=== PATIENT | female | born 2000 | race Caucasian/White ===

== ENCOUNTER 2022-02-06 09:37 | Day surgery (SDC) | payer OTHER, SELFPAY ==
[2022-02-06] VITALS (8 sets, daily range): BP systolic 93–122; BP diastolic 48–80; PULSE 55–82; RESP 16–18; TEMP 36.3–36.8; O2SAT 96–100; BMI 27.6
[2022-02-06 10:29] LABS: Internal QC Validated? YES +Cl - CLEAR BKGD
[2022-02-06 10:31] LABS: Hematocrit 39.8 % (37-47); Hemoglobin 13.9 g/dL (12.0-15.0); Mean Corp Hgb Conc 34.9 g/dL (32-36); Mean Corpuscular Hgb 30.5 pg (27.0-32.0); Mean Corpuscular Volume 87.5 fL (81-99); Mean Platelet Vol. 9.4 fl (6.2-12.0); Platelet Count 381 K/mm3 (150-450); RBC Distribution Width CV 12.7 % (11.6-14.6); RBC Distribution Width SD 40.5 fl (35.1-43.9); Red Blood Count 4.55 M/mm3 (4.2-5.4)
[2022-02-06 10:33] LABS: Pregnancy, Urine Negative Negative
[2022-02-06] MEDS: Lactated Ringers 1,000 ML 15 ML IV (10:35)
--- NOTE | 2022-02-06 11:25 | FALS_PTH ---
PATIENT: ELIER NARVAEZ [place] [facility] [id number] AGE/SX: 21/ ROOM: RE02/06/[address]: Dr. Paradise Peres DO : 2000 BED: DIS: 02/06/2022 SPEC #: [id number] RECD: 02/06/22 15:01 STATUS: L[place]ELL [place] #: [id number] REFUGIO: 02/06/22 11:[address]: Paradise Peres DEPT: SURGICAL PATHOLOGY RECD BY: Maude Brunner ENTERED: 02/07/22 09:55 SP TYPE: FALL TUBES OTHR DR: Breezy Best, THIRD HELPER-C Tissues: Fallopian tube Procedures: Surgery Specimen Level II HEADER OPERATION: Laparoscopic salpingectomy, IUD removal PRE-OP DIAGNOSIS: Sterilization, removal of IUD TISSUE SUBMITTED: Bilateral fallopian tubes MICROSCOPIC DIAGNOSIS Bilateral fallopian tubes, salpingectomy: Bilateral fallopian tubes, no pathologic diagnosis. SJ:sandy 02/11/2022 MICROSCOPIC DESCRIPTION Slides are reviewed. GROSS DESCRIPTION Received in fixative is one container labeled with the patient's name and designated bilateral fallopian tubes. The specimen consists of bilateral fallopian tubes including fimbrial ends measuring 5.5 cm in length and 0.5 cm in diameter and 6 cm in length and 0.5 cm in diameter. The fallopian tubes are not identified as right or left. Sections reveal unremarkable cut surfaces. Geochemistry Teacher sections are submitted in two cassettes with each cassette containing one fallopian tube. / Shannon 02/07/2022 TC:4 CPT: 11304 x2
--- NOTE | 2022-02-06 14:00 | DCINST_ITS ---
Discharge Instructions Diet Discharge Diet: No restrictions Activity Discharge Activity: May Drive (Once you are no longer taking Percocet, more than 24 hours out from the surgery, and you feel strong enough to slam on a brake or turn a steering wheel sharply) and May Shower (More than 24 hours out from surgery) May resume sexual activity in: 1 week (No intercourse, tampons, hot tubs, baths or pools for 1 week) Ice area for (Minutes): 15 Weight Bearing Status: Weight bearing as tolerated Lifting Restrictions: Nothing heavier than 10-15 lbs for 1st week Dressing / Incision Call your doctor if your incision/area has: Continuous Slow Oozing, Sudden Increased Bleeding, Increased Pain/ Swelling, Increased Redness, Foul Smelling Discharge and Swelling at the incision site Call your doctor if you observe: Fever of 101 or Higher, Coldness, Increased Pain, Numbness or Tingling, Change in Color, Inability to urinate, Inability to have a bowel movement, Using more than 1 pad per hour, Shortness of breath, Dizziness, Fainting spells, Swelling in the ankles, Chest pain, Increased palpitations (irregular heartbeat), Calf discomfort and Uncontrolled pain Suture Line Care: Avoid Pulling/Pushing and Avoid Pinching/Bending Remove Dressing in: leave in place till F/U Cleanse incision/area with: Soap & Water Follow Up Care Please Follow Up With: Paradise Peres DO When: 1 week post op exam Test Results: Test results from this visit will be discussed in further detail at your follow- up appointment, if applicable. Discharge Plan Admission Primary Reason for Your Visit: surgery Attending Provider: Paradise Peres Primary Care Provider: Breezy Best NP Discharge Orders/Prescriptions Prescriptions: New oxycodone-acetaminophen [Percocet] 5-325 mg tablet 1 tab PO Q6H PRN (Reason: pain) 7 Days Qty: 15 0RF ibuprofen 600 mg tablet 600 mg PO Q6H PRN (Reason: pain) Qty: 30 0RF Discontinued Mirena 20 mcg/24 hours (8 yrs) 52 mg Intrauterine Device 20 mcg INTRAUTERINE UD Referrals / Follow Up: Breezy Best GLOBAL CREATIVE CHAIRMAN, GLOBAL CREATIVE CHAIRMAN-C [Primary Care Provider] - Disposition Disposition (needs filled in before D/C Order can be placed): Home, Self Care
--- NOTE | 2022-02-06 14:02 | PCM.OPRPT ---
Problems Associated Problem List Diagnoses (1) Request for sterilization: Report of Operation Date of Procedure: 02/06/22 Pre-Operative Diagnosis: Request for sterilization Desires IUD removal Post-Operative Diagnosis: As above Surgery/Procedure Performed:: Laparoscopic bilateral salpingectomy IUD removal Description of Surgical Findings:: Normal appearing pelvis. Normal uterus and bilateral adnexa Surgeon: Paradise Peres locksmith apprentice: None Type of Anesthesia: General Special Medications: None Specimen's removed: Bilateral fallopian tubes Drains: None Estimated Blood Loss (mL): < 50 cc Fluids Replaced: 1000 mL Description of Procedure: The patient was taken to the operating room where general anesthesia was induced. She was prepped and draped in the dorsal lithotomy position using yellowfin stirrups. From below weighted speculum was placed to expose the cervix. The anterior lip of the cervix was grasped with a single-tooth tenaculum. The IUD strings were visualized and grasped with a ring forcep. Using gentle traction the IUD was moved removed easily and intact. An acorn manipulator was placed for uterine manipulation. The weighted speculum was removed. Gloves were changed and attention was turned to the abdominal portion of the procedure. Local was infiltrated at all port sites. Infraumbilically a 5 mm incision was made to accommodate a 5 mm port. This infraumbilical port was placed using direct visualization with the laparoscope. Once confirmed intraperitoneal, CO2 insufflation was initiated. A right lateral 5 mm port was placed. A left lateral 5 mm port was placed. The right fallopian tube was followed out to the fimbriated end. Using the LigaSure device the mesosalpinx was serially clamped, cauterized, and transected until reaching level of the cornua. Once at the level of the cornua, the fallopian tube was transected and removed. The same was performed on the left side. The left fallopian tube was followed out to the fimbriated end and elevated the pelvis. The left mesosalpinx was serially clamped, cauterized, transected using the LigaSure device. Once at the level of the cornua the fallopian tube was transected and removed. Bilateral fallopian tubes were sent to pathology for review. Pelvis was normal-appearing. Hemostasis was noted. The abdomen was exsufflated and all ports were removed. The port sites were closed with Monocryl and glue. From below all instruments were removed from the vagina and vaginal sweep was performed. Instrument, sponge, sharps counts were correct. The patient was taken to recovery room in stable condition. Grafts/Implants Used: None Procedure Start Time: 13:34 Procedure Stop Time: 14:10 Complications None Admit VTE Documentation VTE Present on Admission: No VTE Mechan Device Prophylaxis: SCD's
== END 2022-02-06 16:21 | disposition home or self-care (01) ==
LOC: SDC 09:40 → AC 09:43
PROVIDERS: Anesthesiology; PCP Nurse Practitioner Family; Referring Provider Obstetrics & Gynecology; Visit Provider Obstetrics & Gynecology
PROC: (CPT 58661; principal; 2022-02-06 11:10)
DX: Z30.2 Encounter for sterilization (principal); Z30.432 Encounter for removal of intrauterine contraceptive device
CPT/HCPCS: 58661; 58301; 00840; 81025; 85027; 86850; 86900; 86901; 88302; J7120; J2405

== ENCOUNTER 2022-06-13 01:40 | Emergency (ER) | payer OTHER, SELFPAY ==
[2022-06-13 01:42] VITALS: BP 116/58; PULSE 85; RESP 16; TEMP 36.2; O2SAT 99; BMI 29.5
--- NOTE | 2022-06-13 02:05 | EKG12_ITS ---
Test Reason : CP Blood Pressure : / mmHG Vent. Rate : 067 BPM Atrial Rate : 067 BPM P-R Int : 190 ms QRS Dur : 094 ms QT Int : 400 ms P-R-T Axes : 062 080 049 degrees QTc Int : 422 ms Normal sinus rhythm Normal ECG Confirmed by ALONA FOREMAN, SOREN ([id number]), news copy editor DEANGELO ALEXANDER ([id number]) on 06/16/2022 12:39:31 PM Referred By: MINESH Confirmed By:JOSIAH SAGE MD
--- NOTE | 2022-06-13 02:30 | RAD_ITS ---
INDICATION: chest pain EXAMINATION/TECHNIQUE: X-RAY - XR Chest 2 Views COMPARISON: None. FINDINGS: LINES/DEVICES: None. LUNGS: No consolidation, edema or effusion. No pneumothorax. MEDIASTINUM AND CARDIOVASCULAR STRUCTURES: Cardiac silhouette not enlarged. Central airways and mediastinal contour are unremarkable. BONES AND SOFT TISSUES: Unremarkable. RAD/Chest PA and Lateral IMPRESSION: No radiographic evidence of acute cardiopulmonary disease. Electronically Signed: Bari Michel MD at 2:50 EST ,
[2022-06-13 02:37] LABS: Absolute Lymphocyte Count 2.35 X10^3/uL (0.83-4.51); Absolute Neutrophil Count 5.5 X10^3/uL (2.0-7.7); Basophil# 0.03 X10^3/uL; Basophil% 0.3 % (0-1); Eosinophil# 0.08 X10^3/uL; Eosinophils% 0.9 % (0-5); Hematocrit 37.6 % (37-47); Hemoglobin 12.3 g/dL (12.0-15.0); Lymphocyte # 2.35 X10^3/ul (0.83-4.51); Lymphocyte % 27.3 % (19-41); Mean Corp Hgb Conc 32.7 g/dL (32-36); Mean Corpuscular Hgb 29.2 pg (27.0-32.0); Mean Corpuscular Volume 89.3 fL (81-99); Mean Platelet Vol. 10.3 fl (6.2-12.0); Monocyte# 0.61 X10^3/uL; Monocyte% 7.1 % (0-10); NRBC Flagged by Analyzer 0 % (0-5); Neutrophil # 5.52 X10^3/uL (2.7-7.7); Neutrophil % 64.1 % (47-70); Platelet Count 341 K/mm3 (150-450); RBC Distribution Width CV 12.5 % (11.6-14.6); RBC Distribution Width SD 40.5 fl (35.1-43.9); Red Blood Count 4.21 M/mm3 (4.2-5.4); White Blood Count 8.6 K/mm3 (4.4-11.0)
[2022-06-13 02:58] LABS: Anion Gap 8 (5-15); BUN 13 mg/dL (7-18); BUN/Creat Ratio 16.2 RATIO (10-20); Calcium,Total 8.8 mg/dL (8.5-10.1); Chloride 107 mmol/L (98-107); EST Glomerular Filtration Rate 94 mL/min (>60); Est Glom Filt Rate - Afr Amer 114 mL/min (>60); Estimated Creatinine Clearance 107.27 ml/min; Glucose 116 mg/dL (74-106); Potassium 3.7 mmol/L (3.5-5.1); Sodium Level 138 mmol/L (136-145); Thyroid Stim Hormone (TSH) 7.91 uIU/mL (0.358-3.74); Troponin-I HS 4 pg/mL (3.0-54.0)
--- NOTE | 2022-06-13 03:20 | EDS_ITS ---
HPI History of Present Illness Chief Complaint: Chest Pain Narrative Narrative: Patient is a 21-year-old female who reports a previous remote history of anxiety after eating pot brownies. She states that today she was at work and had a overall noneventful day. She states she was closing up when suddenly she fell like her heart was racing and skipping beats and she had chest discomfort. She states that there has been no excessive stimulant use or illicit drug use. She states there is no family history of cardiac disease at a young age. She states that there is been no recent travel surgery or history of DVT/PE. She states that since his onset symptoms have been gradually improving but with concern this could be related to some the other than anxiety she presents for evaluation [facility] Medical History (Updated 06/13/22 @ 03:[address] Dale Sherman DO) Anxiety Depression Gastric reflux Kidney stones Migraine headache Home Medications NK 06/13/22 [History Last Taken Unknown] Allergy/AdvReac Type Severity Reaction Status Date / Time No Known Allergies Allergy Verified 02/04/22 08:03 Social History Smoking Status: Never smoker [facility] ED Constitutional Constitutional ED: Denies chills or fever(s) ENT ENT ED: Denies sore throat Cardiovascular Cardiovascular: Reports chest pain, palpitations and racing heartbeat Respiratory/Chest Respiratory/Chest: Denies cough or dyspnea Gastrointestinal Gastrointestinal: Denies abdominal pain, diarrhea, nausea or vomiting Genitourinary Genitourinary ED: Denies dysuria Musculoskeletal Musculoskeletal: Denies myalgias Integumentary Denies rash Neurologic Neurologic: Denies headache(s) Psychiatric Psychiatric: Denies anxiety Hematologic/Lymphatic Hematologic/Lymphatic: Denies easy bleeding or easy bruising EXAM Physical Exam Const Vital Signs: 06/13/22 01:42 06/13/22 01:42 06/13/22 03:23 Temperature 97.2 F L Temperature Source Temporal Pulse Rate 85 66 Respiratory Rate 16 17 Respiratory Effort Normal Non-Labored Blood Pressure 116/58 L Blood Pressure Mean 77 Pulse Ox 99 98 Oxygen Delivery Method Room Air Positive well nourished and well developed General Appearance ED: well developed Eyes PERRL and EOMs intact bilaterally Neck supple Neck Narrative: No obvious nodule or goiter noted along the thyroid Chest Wall palpation of chest normal Chest Narrative: No bony deformity or crepitance Resp normal respiratory effort and clear to auscultation bilaterally Cardio regular rate and regular rhythm Rate: other Other Details: Radial pulses are plus 2 out of 4 bilaterally are equal and symmetric GI normal to inspection, nondistended, normoactive bowel sounds, non-tender and non-distended Auscultation: normoactive bowel sounds Palpation: soft Extremity normal to inspection Extremity Narrative: No asymmetric edema no pitting edema negative Homans' sign bilaterally Neuro oriented x3 and CN's II-XII intact bilaterally Sensorium / Orientation: alert Psych mental status grossly normal Skin no rashes or lesions noted MDM MDM MDM Narrative Medical decision making narrative: Patient presented to the ER with stable vitals and spontaneously improving symptoms. She is low risk for cardiac disease. She also is PERC negative and therefore I feel no need for D-dimer. At this time with her report of chest d iscomfort but also that it began with palpitations and heart racing there was concern she was in a cardiac dysrhythmia so basic blood work with EKG and chest x-ray were obtained. Labs revealed no clinically significant findings. Chest x-ray revealed no acute lung pathology such as pneumonia pneumothorax or tumor as a cause of her symptoms. EKG and property assessment monitor revealed no acute dysrhythmia or signs of cardiac damage. On reevaluation patient is resting comfortably and reports resolution of symptoms. As labs revealed no clinically significant findings or signs of cardiac event I do not feel there is need for further work-up as she is low risk for acute coronary syndrome and is PERC negative for possible DVT/PE. Patient most likely had a breakthrough anxiety attack as a cause of her symptoms and as there is been spontaneous resolution of symptoms with out positive work-up she is otherwise safe for discharge Lab Data Attestation: I reviewed the patient's lab results. Labs: Laboratory Results - last 24 hr 06/13/22 06/13/22 02:17 02:17 WBC 8.6 RBC 4.21 Hgb 12.3 Hct 37.6 MCV 89.3 MCH 29.2 MCHC 32.7 RDW Std Deviation 40.5 RDW Coeff of Jimmy 12.5 Plt Count 341 MPV 10.3 Immature Gran % (Auto) 0.300 Neut % (Auto) 64.1 Lymph % (Auto) 27.3 [place] % (Auto) 7.1 Eos % (Auto) 0.9 Baso % (Auto) 0.3 Absolute Neuts (auto) 5.5 Absolute Lymphs (auto) 2.35 Nucleated RBC % 0 Sodium 138 Potassium 3.7 Chloride 107 Carbon Dioxide 23.0 Anion Gap 8 BUN 13 Creatinine 0.80 Estim Creat Clear Calc 107.27 Est GFR (MDRD) Af Amer 114 Est GFR (MDRD) Non-Af 94 BUN/Creatinine Ratio 16.2 Glucose 116 H Calcium 8.8 Magnesium 2.0 Troponin I High Sens 4 TSH 7.91 H Radiography Diagnostic Testing: Clinical Impression(s) from Imaging Studies Chest X-Ray 06/13/22 02:30 IMPRESSION: No radiographic evidence of acute cardiopulmonary disease. Electronically Signed: Bari Michel MD at 2:50 EST , Chest x-ray as interpreted by the emergency medicine physician reveals no acute infiltrate pneumothorax or pleural effusion Discharge Plan Triage Chief Complaint: Chest Pain ED Provider: Dale Sherman Dx/Rx/DC Orders Clinical Impression: Heart palpitations, Acute nonspecific chest pain with low risk of coronary artery disease, Anxiety Instructions: ED Palpitations Prescriptions: No Action NK Primary Care Provider: Breezy Best NP Referrals: Breezy Best NP, [employer]SPORT DRIVER-C [Primary Care Provider] - Activity Restrictions/Additional Instructions: Your work-up today did not show any signs of abnormal heart rhythm or signs of cardiac disease. Your thyroid marker was off indicating hypothyroidism. Please follow-up with your family doctor to have further testing done to further assess this abnormal laboratory value and return to the ER should you have any further concerns Disposition Disposition: Home, Self Care Discharge Date/Time: 06/13/22 03:23
[2022-06-13 03:23] VITALS: PULSE 66; RESP 17; O2SAT 98
== END 2022-06-13 03:23 | disposition home or self-care (01) ==
PROVIDERS: Emergency Provider Emergency Medicine; PCP Nurse Practitioner Family; Visit Provider Emergency Medicine
DX: R07.9 Chest pain, unspecified (principal); R00.2 Palpitations; F41.9 Anxiety disorder, unspecified
CPT/HCPCS: 71046; 80048; 83735; 84443; 84484; 85025; 93005; 99285; A4216

== ENCOUNTER 2022-12-05 21:13 | Emergency (ER) | payer OTHER, SELFPAY ==
[2022-12-05 21:14] VITALS: BP 121/71; PULSE 81; RESP 18; TEMP 36.7; O2SAT 100; BMI 29.2
[2022-12-05 21:21] VITALS: BP 121/71; PULSE 81; RESP 18; TEMP 36.7; O2SAT 100
[2022-12-05 21:50] VITALS: BP 100/87; PULSE 78; RESP 12; O2SAT 100
--- NOTE | 2022-12-05 22:02 | EKG12_ITS ---
Test Reason : DYSRHYTHMIA Blood Pressure : / mmHG Vent. Rate : 066 BPM Atrial Rate : 066 BPM P-R Int : 156 ms QRS Dur : 092 ms QT Int : 388 ms P-R-T Axes : 061 090 059 degrees QTc Int : 406 ms Normal sinus rhythm Normal ECG Confirmed by GRACIA FOREMAN, CYNDEE ([id number]), film and video editor DEANGELO ALEXANDER ([id number]) on 12/06/2022 10:06:55 AM Referred By: OSMAN Confirmed By:CYNDEE FAGAN MD
--- NOTE | 2022-12-05 22:03 | EX.ED.DYSGE1 ---
HPI History of Present Illness Chief Complaint: Palpitations Informant: patient Narrative Narrative: 22-year-old old female presents with the second time she has ever had an episode of rapid racing palpitations that started suddenly about 2.5-3 hours ago, lasted about an hour and a half, and is now gone. 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 She has not been put on any thyroid medication. She takes testosterone. She states when she had these palpitations she was feeling lightheaded disoriented may be a little out of breath but no chest discomfort, she did not have any syncopal episodes now or back in June. She denies any recent illness or injury. No other medications or drugs. She states she has been checking her pulse a lot. She states there are times when she notices something is wrong and she checks her pulse and it is low in the 50s but then suddenly it will be high at the 90 level. She is concerned because this is the first time she is ever had a rapid heart rate the day after her heart rate was in the 50s. She did not have any near-syncope or syncope with that either. Furthermore, she then states she has been having very minor episodes of both high and low heart rate almost daily for the last month. No symptoms like she had tonight. Furthermore-she states that a couple weeks ago she had wild mood swings and some panic attacks which are unusual for her, and at that time she was having some suicidal thoughts without a plan, she states she has no suicidal ideation right now and all of that is been better since then but she wants to know why that happened. [facility] Medical History Anxiety Depression Gastric reflux Kidney stones Migraine headache Palpitations Home Medications testosterone (AndroGel) 1 pump topical DAILY 12/05/22 [History Last Taken Unknown] Allergy/AdvReac Type Severity Reaction Status Date / Time No Known Allergies Allergy Verified 12/05/22 21:21 Social History Smoking Status: Never smoker ROS ROS ED Constitutional Constitutional ED: Denies chills or fever(s) Eyes Eyes: Denies change in vision or diplopia ENT ENT ED: Denies rhinorrhea or sore throat Cardiovascular Cardiovascular: Reports lightheadedness, palpitations and racing heartbeat; Denies chest pain or syncope Respiratory/Chest Respiratory/Chest: Denies cough or dyspnea Gastrointestinal Gastrointestinal: Denies abdominal pain, diarrhea, nausea or vomiting Genitourinary Genitourinary ED: Denies dysuria or hematuria Musculoskeletal Musculoskeletal: Denies back pain or neck pain Integumentary Denies abscess or rash Neurologic Neurologic: Denies headache(s), paresthesias or weakness Psychiatric Psychiatric: Reports as per HPI, mood swings, panic attacks and suicidal thoughts; Denies hallucinations, homicidal ideation, paranoia or suicidal ideation EXAM Physical Exam Const Vital Signs: 12/05/22 21:14 12/05/22 21:21 12/05/22 21:50 Temperature 98.0 F 98.0 F Temperature Source Temporal Temporal Pulse Rate 81 81 78 Respiratory Rate 18 18 12 Respiratory Effort Respiratory Pattern Blood Pressure 121/71 H 121/71 H 100/87 H Blood Pressure Mean 87 87 91 Pulse Ox 100 100 100 Oxygen Delivery Method Room Air Room Air Room Air 12/05/22 21:51 12/05/22 21:56 12/05/22 23:32 Temperature Temperature Source Pulse Rate 63 Respiratory Rate 18 Respiratory Effort Normal Non-Labored Normal Non-Labored Respiratory Pattern Normal Blood Pressure 110/60 Blood Pressure Mean 76 Pulse Ox 98 Oxygen Delivery Method Room Air Positive well nourished and well developed General Appearance ED: well developed and NAD HEENT Reports moist mucous membranes normocephalic and atraumatic Eyes PERRL and EOMs intact bilaterally Neck full ROM and supple Resp normal respiratory effort and clear to auscultation bilaterally Cardio regular rate, regular rhythm and no murmurs Rate: other Other Details: Varies with respirations from 50s-70s, consistent with sinus arrhythmia on the monitor while taking deep inspirations. GI non-tender and non-distended Auscultation: normoactive bowel sounds Palpation: soft Back/Spine no CVA tenderness General Back: other FROM Extremity normal to inspection General Extremety ED: Negative for edema, pulses abnormal or tenderness General Extremity: Negative for edema or pulses abnormal Neuro oriented x3, CN's II-XII intact bilaterally and no sensory deficits noted Sensorium / Orientation: awake and alert Motor Exam: strength 5/5 throughout Psych mental status grossly normal Skin no rashes or lesions noted and no wounds MDM MDM MDM Narrative Medical decision making narrative: Labs unremarkable, other than sinus arrhythmia no telemetry events or recurrent symptoms while in the emergency department for couple hours. I have a low suspicion that a 24 to 48-hour monitor is going to show anything here, I think she is more likely to need an event monitor, but I will see if there is a 24-hour monitor available from respiratory to have put on the patient and then she can follow-up as an outpatient regardless. Lab Data Attestation: I reviewed the patient's lab results. Labs: Laboratory Results - last 24 hr 12/05/22 23:30 WBC 7.9 RBC 3.99 L Hgb 11.8 L Hct 34.9 L MCV 87.5 MCH 29.6 MCHC 33.8 RDW Std Deviation 39.9 RDW Coeff of Jimmy 12.6 Plt Count 339 MPV 9.2 Immature Gran % (Auto) 0.300 Neut % (Auto) 63.7 Lymph % (Auto) 26.5 [place] % (Auto) 8.6 Eos % (Auto) 0.3 Baso % (Auto) 0.6 Absolute Neuts (auto) 5.1 Absolute Lymphs (auto) 2.10 Nucleated RBC % 0 Sodium 139 Potassium 3.2 L Chloride 109 H Carbon Dioxide 26.0 Anion Gap 4 L BUN 9 Creatinine 0.78 Estim Creat Clear Calc 109.08 Est GFR (MDRD) Af Amer 117 Est GFR (MDRD) Non-Af 96 BUN/Creatinine Ratio 11.5 Glucose 89 Calcium 8.6 Troponin I High Sens < 3 L TSH 1.28 Rhythm Strip Rhythm Strip: Sinus Rhythm Rate: 65 Ectopy: None EKG Initial EKG: Attestation: I personally reviewed and interpreted this EKG as follows: Interpretation: Sinus Rhythm and No Acute Injury Pattern Comments: nml ekg Discharge Plan Triage Chief Complaint: Palpitations ED Provider: Ritesh Graff Dx/Rx/DC Orders Clinical Impression: Palpitations Instructions: ED Palpitations Prescriptions: No Action testosterone [AndroGel] 20.25 mg/1.25 gram (1.62 %) gel in metered-dose pump 1 pump topical DAILY Rx Instructions: apply 1 pump amount over max area of ONE upper arm and shoulder Primary Care Provider: Breezy Best NP Referrals: Breezy Best NP, FIRE EXTINGUISHER INSTALLER-C [Primary Care Provider] - As soon as possible Disposition Disposition: Home, Self Care
--- NOTE | 2022-12-05 22:06 | ED.RN ---
and this RN at bedside with. denies suicidal thoughts or plan at this time.
--- NOTE | 2022-12-05 22:49 | ED.RN ---
no need for sitter per Dr. Graff
[2022-12-05 23:32] VITALS: BP 110/60; PULSE 63; RESP 18; O2SAT 98
[2022-12-05 23:38] LABS: Absolute Neutrophil Count 5.1 X10^3/uL (2.0-7.7); Basophil# 0.05 X10^3/uL; Basophil% 0.6 % (0-1); Eosinophil# 0.02 X10^3/uL; Eosinophils% 0.3 % (0-5); Hematocrit 34.9 % (37-47); Hemoglobin 11.8 g/dL (12.0-15.0); Lymphocyte % 26.5 % (19-41); Mean Corp Hgb Conc 33.8 g/dL (32-36); Mean Corpuscular Hgb 29.6 pg (27.0-32.0); Mean Corpuscular Volume 87.5 fL (81-99); Mean Platelet Vol. 9.2 fl (6.2-12.0); Monocyte# 0.68 X10^3/uL; Monocyte% 8.6 % (0-10); NRBC Flagged by Analyzer 0 % (0-5); Neutrophil # 5.06 X10^3/uL (2.7-7.7); Neutrophil % 63.7 % (47-70); Platelet Count 339 K/mm3 (150-450); RBC Distribution Width CV 12.6 % (11.6-14.6); RBC Distribution Width SD 39.9 fl (35.1-43.9); Red Blood Count 3.99 M/mm3 (4.2-5.4); White Blood Count 7.9 K/mm3 (4.4-11.0)
[2022-12-06 00:06] LABS: Anion Gap 4 (5-15); BUN 9 mg/dL (7-18); BUN/Creat Ratio 11.5 RATIO (10-20); Calcium,Total 8.6 mg/dL (8.5-10.1); Chloride 109 mmol/L (98-107); Creatinine, Serum 0.78 mg/dL (0.55-1.02); EST Glomerular Filtration Rate 96 mL/min (>60); Est Glom Filt Rate - Afr Amer 117 mL/min (>60); Estimated Creatinine Clearance 109.08 ml/min; Glucose 89 mg/dL (74-106); Potassium 3.2 mmol/L (3.5-5.1); Sodium Level 139 mmol/L (136-145); Thyroid Stim Hormone (TSH) 1.28 uIU/mL (0.358-3.74); Troponin-I HS < 3 pg/mL (3.0-54.0)
[2022-12-06 00:32] VITALS: BP 107/61; PULSE 69; RESP 18; O2SAT 100
== END 2022-12-06 00:33 | disposition home or self-care (01) ==
PROVIDERS: Emergency Provider Emergency Medicine; PCP Nurse Practitioner Family; Visit Provider Emergency Medicine
DX: R00.2 Palpitations (principal)
CPT/HCPCS: 80048; 84443; 84484; 85025; 93005; 99285; A4216

== ENCOUNTER → 2022-12-06 | Outpatient (CLI) | payer OTHER, SELFPAY | END | disposition home or self-care (01) | LOC: CVS 00:28 | PROVIDERS: PCP Nurse Practitioner Family; Visit Provider Internal Medicine Cardiovascular Disease | DX: Z00.00 Encounter for general adult medical examination without abnormal findings (principal) ==

== ENCOUNTER 2024-04-18 22:09 | Emergency (ER) | payer OTHER, SELFPAY ==
[2024-04-18 22:11] VITALS: BP 116/75; PULSE 103; RESP 20; TEMP 36.8; O2SAT 100; BMI 34.1
--- NOTE | 2024-04-18 22:14 | EKG12_ITS ---
Test Reason : SOB/CP Blood Pressure : */* mmHG Vent. Rate : 75 BPM Atrial Rate : 75 BPM P-R Int : 188 ms QRS Dur : 88 ms QT Int : 356 ms P-R-T Axes : 70 85 50 degrees QTcB Int : 397 ms Sinus rhythm with marked sinus arrhythmia Otherwise normal ECG Confirmed by GRACIA FOREMAN, CYNDEE ([id number]), food expeditor MARNI ADAMS ([id number]) on 04/19/2024 8:19:56 AM Referred By: Confirmed By: CYNDEE FAGAN MD
[2024-04-18 22:30] LABS: Absolute Lymphocyte Count 1.85 X10^3/uL (0.83-4.51); Absolute Neutrophil Count 5.4 X10^3/uL (2.0-7.7); Basophil# 0.05 X10^3/uL; Basophil% 0.6 % (0-1); Eosinophil# 0.05 X10^3/uL; Eosinophils% 0.6 % (0-5); Hemoglobin 13.7 g/dL (12.0-15.0); Lymphocyte # 1.85 X10^3/ul (0.83-4.51); Mean Corp Hgb Conc 34.3 g/dL (32-36); Mean Corpuscular Hgb 29.4 pg (27.0-32.0); Mean Corpuscular Volume 85.8 fL (81-99); Mean Platelet Vol. 9.1 fl (6.2-12.0); Monocyte# 0.61 X10^3/uL; Monocyte% 7.6 % (0-10); NRBC Flagged by Analyzer 0 % (0-5); Neutrophil # 5.44 X10^3/uL (2.7-7.7); Neutrophil % 67.8 % (47-70); Platelet Count 477 K/mm3 (150-450); RBC Distribution Width CV 12.7 % (11.6-14.6); RBC Distribution Width SD 39.6 fl (35.1-43.9); Red Blood Count 4.66 M/mm3 (4.2-5.4)
[2024-04-18 22:47] LABS: Anion Gap 7 (5-15); BUN 17 mg/dL (7-18); BUN/Creat Ratio 17.9 RATIO (10-20); Calcium,Total 9.6 mg/dL (8.5-10.1); Chloride 110 mmol/L (98-107); Creatinine, Serum 0.95 mg/dL (0.55-1.02); EST Glomerular Filtration Rate 76 mL/min (>60); Est Glom Filt Rate - Afr Amer 92 mL/min (>60); Estimated Creatinine Clearance 110.32 ml/min; Glucose 101 mg/dL (74-106); Potassium 3.3 mmol/L (3.5-5.1); Sodium Level 140 mmol/L (136-145); Troponin-I HS < 3 pg/mL (3.0-54.0)
--- NOTE | 2024-04-18 22:51 | EDS_ITS ---
HPI History of Present Illness Chief Complaint: Shortness of Breath Detail of Chief Complaint: 'Overwhelming sense of doom Informant: patient Onset/Context/Timing Onset: Today and Hours Context: Gradual Onset Timing: Continuous Narrative Narrative: 23-year-old female history of anxiety. States that she has had an overwhelming sense of doom since around 745 tonight. Said it typically does not last this long. She has had panic attacks before but thinks this is different. She denies any recent illness. Denies any nausea, vomiting or diarrhea. No fever or chills. No cough. Prior similar symptoms: Yes Recent Illness/Hospitalization: No [facility] Medical History (Updated 04/19/24 @ 03:[address] Franklyn Preston MD) Paty's disease Vertigo Gender identity uncertainty Hypothyroid Palpitations Depression Anxiety Kidney stones Migraine headache Gastric reflux Home Medications ?Medication ?Instructions ?Recorded ?Last Taken ?Type testosterone (AndroGel) 1 pump topical DAILY 12/05/22 Unknown History Allergy/AdvReac Type Severity Reaction Status Date / Time No Known Allergies Allergy Verified 04/18/24 22:10 Social History Smoking Status: Never smoker ROS ROS ED ROS Narrative Denies recent illness. Constitutional Constitutional ED: Denies lethargy Eyes Eyes: Denies bloody eye ENT ENT ED: Denies bloody eye or change in voice Cardiovascular Cardiovascular: Reports irregular heart rhythm Respiratory/Chest Respiratory/Chest: Denies chest congestion Gastrointestinal Gastrointestinal: Denies dry heaves Genitourinary Genitourinary ED: Denies flank pain Musculoskeletal Musculoskeletal: Denies difficulty walking Integumentary Denies laceration Neurologic Neurologic: Denies abnormal speech Psychiatric Psychiatric: Denies auditory hallucinations Endocrine Endocrinology: Denies cold intolerance Hematologic/Lymphatic Hematologic/Lymphatic: Denies lymphadenopathy Allergic/Immunologic Allergic/Immunologic ED: Denies mouth swelling EXAM Physical Exam Narrative Exam Narrative: Well-appearing 23-year-old female. Vital signs stable afebrile. Pulse ox 100% on room air no signs of hypoxia. Significant other at bedside. Patient is in no distress. She seems anxious. H EENT exam unremarkable. Pupils round reactive light. Pierced tongue. Moist mucous membranes. Neck nontender no JVD. No lymphadenopathy. Lungs clear to auscultation bilaterally. Heart regular rhythm rate about 80 no murmur. Chest wall ribs nontender. Abdomen soft nontender. No peritoneal signs. Moving all 4 extremities. 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 Dorsi plantarflexion intact. Calves are nontender without edema or cords. Back nontender. Neurologically she is awake and alert with no focal motor deficits. Const Vital Signs: 04/18/24 22:11 04/18/24 23:10 04/18/24 23:10 Temperature 98.3 F Temperature Source Oral Pulse Rate 103 H Respiratory Rate 20 H 16 Respiratory Effort Respiratory Depth Respiratory Pattern Blood Pressure 116/75 Blood Pressure Mean 88 Pulse Ox 100 99 99 Oxygen Delivery Method Room Air Room Air Room Air 04/18/24 23:10 04/19/24 00:00 04/19/24 02:00 Temperature Temperature Source Pulse Rate 93 83 Respiratory Rate 16 16 Respiratory Effort Normal Non-Labored Respiratory Depth Normal Respiratory Pattern Normal Blood Pressure 110/67 108/72 Blood Pressure Mean 81 84 Pulse Ox 98 98 Oxygen Delivery Method Room Air Room Air Room Air Positive well nourished, well developed, alert, oriented x3, no apparent distress, average body habitus, no limitations and healthy appearing; Negative for cachectic, contractures or unkempt General Appearance ED: active, cooperative, comfortable, well kempt and well developed; Negative for unkempt, cachectic or contractures Orientation / Consciousness: awake, oriented to person, oriented to place and oriented to time Exam Limitations: no limitations Nutritional Appearance: Negative for cachectic HEENT Reports normocephalic and head/scalp atraumatic normocephalic Face and Sinus: normal facial exam Nose: external nose normal General Ear: No hearing grossly impaired External Ear: external ears normal Mouth ED: Yes oral and palatal mucosa normal Mouth: oral and palatal mucosa normal Throat: posterior oropharynx normal Eyes PERRL, EOMs intact bilaterally, conjunctivae normal and no scleral icterus Pupil: PERRL Neck full ROM, No nuchal rigidity, no lymphadenopathy, supple, no meningeal signs and no JVD Chest Wall inspection of chest normal and palpation of chest normal Resp normal respiratory effort, normal air movement, no retractions, no use of accessory muscles and clear to auscultation bilaterally Effort and Inspection: able to speak in complete sentences Auscultation: clear to auscultation bilaterally Cardio regular rate, regular rhythm, S1 normal heart sound, S2 normal heart sound, no murmurs, no rub, no gallops, no clicks and no JVD GI normal to inspection, nondistended, normoactive bowel sounds, soft to palpation, non-tender, non-distended, no masses and no bruits Back/Spine no CVA tenderness, normal ROM, normal to inspection, thoracic and lumbar spine normal to inspection and no thoracic nor lumbar tenderness Extremity normal to inspection, full ROM, normal capillary refill, no joint enlargement, no clubbing, cyanosis or edema, no calf tenderness and no pedal edema General Extremety ED: Yes normal exam except as noted General Extremity: normal exam except as noted Neuro oriented x3, CN's II-XII intact bilaterally, moves all extremities and no focal motor deficits Sensorium / Orientation: awake, alert, oriented to person, oriented to place and oriented to time; Negative for orientation impaired Speech: speech normal Psych mental status grossly normal, thought process normal, cooperative and speech normal Psych Narrative: Anxious. Appearance: grossly normal; Negative for unkempt Activity / Motor Behavior: appropriate eye contact Speech: normal speech Mood & Affect: anxious Thought Process: normal thought process Thought Content: normal thought content Attention / Concentration: attention grossly intact Memory / Cognition: memory grossly intact Insight: insight good Judgement: judgement good Skin no rashes or lesions noted, no wounds, skin turgor normal, no jaundice, no petechiae and no mottling General Skin Exam: no breakdown Lesions: no lesions Rashes: no rashes Trauma: no lacerations or abrasions MDM MDM MDM Narrative Medical decision making narrative: 23-year-old female with what appears to be anxiety and/or anxiety attack. She is being given a milligram of Ativan. Her exam is normal. Repeat exam patient is doing well at 3:14 AM. Proved after the Ativan. We went over test results. She will be discharged to home. History & Record Review Discussion w/independent historian: Patient Lab Data Attestation: I reviewed the patient's lab results. Lab results narrative: CBC normal. White count 8. H&H 13 and 40. Platelets 477. Electrolytes show potassium 3.3. Gap 7. Normal BUN of 17 creatinine 0.95. Glucose 101. Troponin less than 3. Labs: Laboratory Results - last 24 hr 04/18/24 22:25 WBC 8.0 RBC 4.66 Hgb 13.7 Hct 40.0 MCV 85.8 MCH 29.4 MCHC 34.3 RDW Std Deviation 39.6 RDW Coeff of Jimmy 12.7 Plt Count 477 H MPV 9.1 Immature Gran % (Auto) 0.400 Neut % (Auto) 67.8 Lymph % (Auto) 23.0 [place] % (Auto) 7.6 Eos % (Auto) 0.6 Baso % (Auto) 0.6 Absolute Neuts (auto) 5.4 Absolute Lymphs (auto) 1.85 Nucleated RBC % 0 Sodium 140 Potassium 3.3 L Chloride 110 H Carbon Dioxide 23.0 Anion Gap 7 BUN 17 Creatinine 0.95 Estim Creat Clear Calc 110.32 Est GFR (MDRD) Af Amer 92 Est GFR (MDRD) Non-Af 76 BUN/Creatinine Ratio 17.9 Glucose 101 Calcium 9.6 Troponin I High Sens < 3 L Rhythm Strip Rhythm Strip: Sinus Rhythm Rate: 75 Ectopy: None EKG Initial EKG: Attestation: I personally reviewed and interpreted this EKG as follows: Interpretation: Sinus Rhythm and No Acute Injury Pattern Comments: Normal sinus rhythm rate of 75 no acute signs of CA or ischemia. No dysrhythmia. Discharge Plan Triage Chief Complaint: Shortness of Breath ED Provider: Franklyn Preston Dx/Rx/DC Orders Clinical Impression: Anxiety Instructions: ED Anxiety Reaction Prescriptions: No Action testosterone [AndroGel] 20.25 mg/1.25 gram (1.62 %) gel in metered-dose pump 1 pump topical DAILY Rx Instructions: apply 1 pump amount over max area of ONE upper arm and shoulder Primary Care Provider: Breezy Best NP Referrals: Breezy Best NP, [employer] [Primary Care Provider] - 3-5 Days if not improving Activity Restrictions/Additional Instructions: Follow-up with your primary care provider. Your exam and labs were normal. This is all secondary to anxiety. Print Language: Kyrgyz Disposition Disposition: Home, Self Care
[2024-04-18 23:10] VITALS: RESP 16; O2SAT 99
[2024-04-18] MEDS: LORazepam 2 MG/ML Syringe 1 MG IV (23:14)
[2024-04-19] VITALS: BP 110/67; PULSE 93; RESP 16; O2SAT 98
[2024-04-19 02:00] VITALS: BP 108/72; PULSE 83; RESP 16; O2SAT 98
[2024-04-19 03:26] VITALS: BP 123/82; PULSE 72; RESP 16; TEMP 36.9; O2SAT 97
== END 2024-04-19 03:28 | disposition home or self-care (01) ==
PROVIDERS: Emergency Provider Emergency Medicine; PCP Nurse Practitioner Family; Visit Provider Emergency Medicine
DX: R06.02 Shortness of breath (principal); F41.9 Anxiety disorder, unspecified
CPT/HCPCS: 80048; 84484; 85025; 93005; 94760; 96374; 99282; A4216